=== PATIENT | male | born 2000 | race Caucasian/White ===

== ENCOUNTER 2023-03-30 16:44 | Emergency (ER) | payer OTHER, SELFPAY ==
[2023-03-30 16:52] VITALS: BP 139/85; PULSE 81; RESP 16; TEMP 36.6; O2SAT 100
--- NOTE | 2023-03-30 17:03 | ED.WOUNDLAC ---
HPI - Wound/Laceration General Stated Complaint: Lacs on left hand History of Present Illness HPI narrative: Patient presents for evaluation of a wound to his left hand. Patient was working on a copper pipe replacement at home and has a superficial laceration to his left thumb and left index finger. No open areas noted no bleeding. Patient is up-to-date on his tetanus shot. Related Data Allergies Allergy/AdvReac Type Severity Reaction Status Date / Time No Known Allergies Allergy Unknown Unverified 12/07/13 16:06 Review of Systems Review of Systems: CONSTITUTIONAL: Denies fever, chills, or sweats. EYES: Denies visual changes, redness, or discharge. ENT: Denies rhinorrhea, congestion, sore throat, or otalgia. CARDIOVASCULAR: Denies chest pain, palpitations, or edema. RESPIRATORY: Denies cough or dyspnea. GASTROINTESTINAL: Denies abdominal pain, nausea, vomiting, or diarrhea. GENITOURINARY: Denies dysuria or hematuria. SKIN: Denies rash or itching. MUSCULOSKELETAL: Denies back pain, joint pain, or myalgia. NEUROLOGIC: Denies headache, numbness, or weakness. PSYCHIATRIC: Denies anxiety or depression. PMFSH Comments At time of signature, agree with nursing past medical, surgical, social and family history. There is no relevant family history pertinent to the presenting complaint Exam Narrative: GENERAL: Well-appearing, well-nourished, and in no acute distress. HEAD: Normocephalic, atraumatic. EYES: PERRLA and EOMI. ENT: Nares clear, no rhinorrhea or epistaxis. Mucous membranes moist. NECK: Supple. CHEST: Clear to auscultation. No respiratory distress. HEART: Regular rate and rhythm. No murmur heard. Normal peripheral pulses. ABDOMEN: Soft, nontender, nondistended, normal active bowel sounds. EXTREMITIES: Normal range of motion. No edema. HAND EXAM -superficial circular laceration to left thumb palmar side and 2 cm superficial wound to left index finger no intervention needed, no swelling, no erythema, normal digit cascade with flexion of fingers, median nerve, ulnar nerve, radial nerve is intact. Normal sensation of each side of each finger, can perform `ok? sign, `cross over finger test of index and middle fingers? and `thumbs up? sign, normal thumb opposition, no scissoring. good capillary refill and radial pulse. normal flexion and extension of fingers and wrist. normal supination at wrist. Normal forearm and elbow exam. SKIN: Warm, dry, no rash. NEURO: No focal deficits. Alert and oriented x3. Mckenzie Coma Scale Eye Opening: Spontaneous 4 Ronaldo Coma Scale Motor: Obeys Commands 6 Mckenzie Coma Scale Verbal: Oriented 5 Ronaldo Coma Scale Total 15 Course Course Level of Care: Express Care Visit Vital Signs Vital signs: Vital Signs Temperature 36.6 C 03/30/23 16:52 Pulse Rate 81 03/30/23 16:52 Respiratory Rate 16 03/30/23 16:52 Blood Pressure 139/85 03/30/23 16:52 Pulse Oximetry 100 03/30/23 16:52 Oxygen Delivery Room Air 03/30/23 16:52 Temperature 36.6 C 03/30/23 16:52 Pulse Rate 81 03/30/23 16:52 Respiratory Rate 16 03/30/23 16:52 Blood Pressure 139/85 03/30/23 16:52 Pulse Oximetry 100 03/30/23 16:52 Oxygen Delivery Room Air 03/30/23 16:52 Procedures Laceration left index finger: ====== Skin Level ====== ====== Subcutaneous Layer ====== ====== Muscle Layer ====== ====== Tendon Layer ====== Dressing: Circular abrasion to left some no intervention needed 2 cm superficial abrasion to left index finger no intervention needed area soaked in antiseptic soap and normal saline mupirocin ointment applied and dry sterile dressing Discharge Plan Discharge Clinical Impression: Laceration Patient Disposition: Home, Self-Care Condition: Stable Instructions: Antibiotic Form, Finger Laceration (ED) Additional Instructions: Wash area with warm soapy water 1 to 2 times a day and apply bacitracin ointment as prescrib
== END 2023-03-30 17:15 | disposition home or self-care (01) ==
PROVIDERS: Emergency Provider Nurse Practitioner Family
DX: S61.412A Laceration without foreign body of left hand, initial encounter (principal); W45.8XXA Other foreign body or object entering through skin, initial encounter
CPT/HCPCS: 99203; G0463

== ENCOUNTER 2024-04-25 17:59 | Emergency (ER) | payer OTHER, SELFPAY ==
[2024-04-25 18:10] VITALS: BP 133/87; PULSE 96; RESP 18; TEMP 37.3; O2SAT 99
--- NOTE | 2024-04-25 19:03 | ED.SKABFB ---
HPI - Skin/Abscess/Foreign Bdy General Chief complaint: Skin/Abscess/Foreign Body Stated complaint: spots on chest Time Seen by Provider: 04/25/24 18:16 Source: patient, RN notes reviewed and old records reviewed Mode of arrival: ambulatory Limitations: no limitations History of Present Illness HPI narrative: 24-year-old male to Express Care with complaint of 2 red spots on his left breast for 3 days. Patient states he initially thought they were bug bites or blemishes. However, they have become increasingly red and tender to touch. patient has not attempted to treat at home. Patient resting comfortably in exam room in no acute distress. Related Data Home Medications Medication Instructions Recorded Confirmed fluoxetine 20 mg capsule mg 04/25/24 Allergies Allergy/AdvReac Type Severity Reaction Status Date / Time No Known Allergies Allergy Unknown Unverified 03/30/23 17:30 Review of Systems Review of Systems: All systems reviewed & are unremarkable except as noted in HPI and below Constitutional: Constitutional: Reports no additional constitutional complaints Eyes: Eyes: Reports no additional eye complaints ENT: Reports system reviewed and no additional complaints, except as documented Cardiovascular: Cardiovascular: Reports no additional cardiovascular complaints, Denies chest pain and Denies dyspnea Respiratory: Respiratory: Reports no additional respiratory complaints, Denies cough and Denies dyspnea Musculoskeletal: Musculoskeletal: Reports no additional musculoskeletal complaints Integumentary/Breasts: Skin/Breast: Reports as per HPI and Reports new lesions ( Left breast) Neurologic: Reports system reviewed and no additional complaints, except as documented Psychiatric: Psychiatric: Reports no additional psychiatric complaints PMFSH Comments At the time of my signature, I reviewed and agree with the nursing past medical, surgical, social, and family history. There is no relevant family history pertinent to the patient complaint. Exam Const: General: cooperative, healthy appearing, comfortable, no acute distress, alert and well nourished Nutritional Appearance: well nourished Orientation/consciousness: patient oriented x3 Limitations: no limitations HENMT: Head: normal to inspection Ears: external ears normal Face/Nose/Sinus: Normal external nose present, Normal nares present, normal facial exam, No erythema and No edema Face and sinus: normal facial exam, no erythema and no edema Mouth: Yes Normal oral and palatal mucosa present Eyes: General: appearance normal, both eyes and all related structures Neck: Neck: normal visual inspection, full ROM and no meningeal signs Chest: Chest palpation & inspection: normal inspection of the chest Resp: Effort & Inspection: normal respiratory effort and able to speak in complete sentences Cardio: Jugular venous distension: no JVD Rate: regular rate Back/Spine/Pelvis: Cervical Spine: cervical ROM normal Skin: General skin exam: turgor normal and lesion Lesions: lesion noted Other: two lesions present to left medial breast. Each lesion measures 1 cm x 1 cm. Erythematous, firm, tender to touch. No drainage present. Neuro: General: patient oriented x3, gait normal, moves all extremities and no meningeal signs Speech: normal speech Gait exam (Neuro): Normal gait present Extrem: General: normal to inspection, full ROM and capillary refill normal Psych: Appearance: grossly normal and well kempt Course Course Emergency Course: Some parts of this dictation were generated by voice recognition software and may contain typographical and/or grammatical inaccuracies. Level of Care: Express Care Visit Vital Signs Vital signs: Vital Signs Temperature 37.3 C 04/25/24 18:10 Pulse Rate 96 04/25/24 18:10 Respiratory Rate 18 04/25/24 18:10 Blood Pressure 133/87 04/25/24 18:10 Pulse Oximetry 99 04/25/24 18:10 Oxygen Delivery Room Air 04/25/24 18:10 Temperature 37.3 C 04/25/24 18:10 Pulse Rate 96 04/25/24 18:10 Respiratory Rate 18 04/25/24 18:10 Blood Pressure 133/87 04/25/24 18:10 Pulse Oximetry 99 04/25/24 18:10 Oxygen Delivery Room Air 04/25/24 18:10 reviewed MDM - Skin/Abscess/Foreign Bdy MDM Narrative Medical decision making narrative: 24-year-old male to Express Care with complaint of 2 red spots on his left breast for 3 days. Patient states he initially thought they were bug bites or blemishes. However, they have become increasingly red and tender to touch. patient has not attempted to treat at home. Patient resting comfortably in exam room in no acute distress. On exam, two lesions present to left medial breast. Each lesion measures 1 cm x 1 cm. Erythematous, firm, tender to touch. No drainage present. Patient is sitting comfortably in exam room nontoxic in appearance. Patient appropriate for outpatient treatment and follow-up. Discharge instructions reviewed with patient, as well as provided in writing per nursing staff. The instructions also include specific and strict return/GO TO THE ER as well as f/u information. All questions have been answered, and the patient deny any further questions with discharge and discharge plan. Some parts of this dictation were generated by voice recognition software and may contain typographical and/or grammatical inaccuracies. Differential Diagnosis Differential diagnosis: Likely abscess of skin or subcutaneous tissue, viral exanthem, dermatophytosis, urticaria, herpes zoster, allergic reaction to drug, cellulitis, eczema, insect bites, impetigo and contact dermatitis Discharge Plan Discharge Clinical Impression: Insect bites, Cellulitis Patient Disposition: Home, Self-Care Condition: Stable Instructions: Cellulitis (ED) Additional Instructions: Please review attached instructions and implement suggestion as tolerated please take entire course of antibiotic treatment for new or worsening symptoms please go directly to the emergency department Prescriptions: New cephalexin 500 mg capsule 500 mg PO Q12H Qty: 14 0RF No Action fluoxetine 20 mg capsule Follow-up/Referrals: PHYSICIAN NOT ON STAFF,NONSTAFF [Primary Care Provider] -
== END 2024-04-25 19:25 | disposition home or self-care (01) ==
PROVIDERS: Emergency Provider Nurse Practitioner Family
DX: S20.162A Insect bite (nonvenomous) of breast, left breast, initial encounter (principal); L03.313 Cellulitis of chest wall; W57.XXXA Bitten or stung by nonvenomous insect and other nonvenomous arthropods, initial encounter; F41.9 Anxiety disorder, unspecified; F32.A Depression, unspecified
CPT/HCPCS: 99213; G0463

== ENCOUNTER 2024-05-07 16:18 | Emergency (ER) | payer OTHER, SELFPAY ==
[2024-05-07 16:27] VITALS: BP 130/83; PULSE 97; RESP 16; TEMP 36.2; O2SAT 99
--- NOTE | 2024-05-07 16:33 | ED.SKABFB ---
HPI - Skin/Abscess/Foreign Bdy General Chief complaint: Skin/Abscess/Foreign Body Stated complaint: follow up on infection on chest Time Seen by Provider: 05/07/24 16:33 Source: patient, RN notes reviewed and old records reviewed Mode of arrival: ambulatory Limitations: no limitations History of Present Illness HPI narrative: 24 year old male who presents to express care who presents to express care with follow up for treatment for initially on 04/25/2024 for 2 red raised tender lesion on left upper breast chest wall area which were tender and measured [id number] each area and was treated with 7 days of Keflex for which he states completed. Today patient reports that he is concerned for lingering infection. Patient has 4cm X3cm area to left breast upper chest wall that is brownish in appearance with dark scab in center, no pustule formation or any induration or fluctuation of tissue, denies any drainage. Patient denies any pain to area or any fevers. MD complaint: other (cellulitis) Onset (ago): day(s) (initially 15 days ago) Location: chest (left upper breast chest wall) Severity: mild Treatments prior to arrival: other (completed 7 days of Keflex) Related Data Home Medications Medication Instructions Recorded Confirmed fluoxetine 20 mg capsule 20 mg DIRECTED 04/25/24 05/07/24 bupropion HCl 100 mg tablet 100 mg PO DIRECTED 05/07/24 05/07/24 Allergies Allergy/AdvReac Type Severity Reaction Status Date / Time No Known Allergies Allergy Unknown Unverified 03/30/23 17:30 Review of Systems Review of Systems: CONSTITUTIONAL: Denies fever, chills, or sweats. CARDIOVASCULAR: Denies chest pain, palpitations, or edema. RESPIRATORY: Denies cough or dyspnea. GASTROINTESTINAL: Denies abdominal pain, nausea, vomiting SKIN: Reports darker tissue to left upper breast chest wall area with no pain with darkened scab noted in center of area. MUSCULOSKELETAL: Denies myalgia. NEUROLOGIC: Denies headache, numbness All systems reviewed & are unremarkable except as noted in HPI and below PMFSH Past Medical History Medical History Anxiety and depression Social History Social History Smoking status: Never smoker Alcohol intake: unknown Substance use: unknown Living arrangements: with family Gender identity (if verbalized by the patient): Male Comments At time of signature, agree with nursing past medical, surgical, social and family history. There is no relevant family history pertinent to the presenting complaint Exam Narrative: GENERAL: Well-appearing, well-nourished, and in no acute distress. HEAD: Normocephalic, atraumatic. EYES: PERRLA and EOMI. ENT: Nares clear, no rhinorrhea or epistaxis. Mucous membranes moist. NECK: Supple.no lymphadenopathy CHEST: Clear to auscultation. No respiratory distress.SAO2 99% on room air HEART: Regular rate and rhythm. No murmur heard. Normal peripheral pulses. ABDOMEN: Soft, nontender, nondistended, normal active bowel sounds. EXTREMITIES: Normal range of motion. No edema. SKIN: Warm, dry. 4cm X 3cm area to left upper breast chest wall with noted black scab in area, no swelling or any induration or fluctuation of tissue, no pustule formation, reports no tenderness to area or any drainage. NEURO: No focal deficits. Alert and oriented x3. Course Course Emergency Course: Patient is aware of diagnosis, understands and agrees to treatment plan. Anticipatory guidance given. Patient agrees to follow-up as directed and is aware of reasons to seek care at the emergency department. Portions of this record may have been created with voice recognition software Level of Care: Express Care Visit Vital Signs Vital signs: Vital Signs Temperature 36.2 C L 05/07/24 16:27 Pulse Rate 97 05/07/24 16:27 Respiratory Rate 16 05/07/24 16:27 Blood Pressure 130/83 05/07/24 16:27 Pulse Oximetry 99 05/07/24 16:27 Oxygen Delivery Room Air 05/07/24 16:27 Temperature 36.2 C L 05/07/24 16:27 Pulse Rate 97 05/07/24 16:27 Respiratory Rate 16 05/07/24 16:27 Blood Pressure 130/83 05/07/24 16:27 Pulse Oximetry 99 05/07/24 16:27 Oxygen Delivery Room Air 05/07/24 16:27 Reviewed MDM - Skin/Abscess/Foreign Bdy MDM Narrative Medical decision making narrative: Does not appear at this time to be erythema multiforme, bullous, SJS, TEN; no evidence at this time to suggest RMSF, endocarditis or Lyme disease; patient looks well, nontoxic and is tolerating oral intake; no neurologic signs or symptoms; no headache, photophobia or neck pain; afebrile; appropriate for initial outpatient treatment; discussed the importance of follow-up, patient agrees. Patient does not have history of penetrating trauma, laceration, blunt trauma, recent surgery, immunosuppression, malignancy, obesity, alcoholism, corticosteroid use. Question cellulitis, necrotizing soft tissue infection, abscess. Differential Diagnosis Differential diagnosis: Likely abscess of skin or subcutaneous tissue, cellulitis, insect bites and contact dermatitis Medical Records Attestation: I reviewed the patient's medical records. Critical Care Time Critical Care Time Critical Care Time: No Discharge Plan Discharge Clinical Impression: Cellulitis Qualifiers: Site of cellulitis: trunk Site of cellulitis of trunk: chest wall Qualified Code(s): L03.313 - Cellulitis of chest wall Patient Disposition: Home, Self-Care Condition: Stable Instructions: Antibiotic Form, Cellulitis (ED) Additional Instructions: Wash area with liquid Dial soap twice daily my mupirocin ointment watch for increasing infection--redness, swelling, drainage Tylenol or ibuprofen for any fever pain follow up with PCP in 7-10 days for a wound check recheck if develop fever, chills, increasing symptom Go to the ER if your symptoms become worse of if ANY new symptoms develop Keflex twice daily for 7 days complete all doses If your symptoms persist, change or worsen significantly before you can contact your personal physician then please, without delay, go to the emergency department for further evaluation. Follow-up with PCP in 7-10 days or sooner if needed Follow up with PCP soon in regards to your blood pressure which is elevated above threshold for referral. Blood pressure above 120/80 may indicate pre-hypertension. 130/83 do not squeeze or remove scab Prescriptions: New mupirocin 2 % ointment 1 applic topical BID Qty: 22 0RF cephalexin 500 mg capsule 500 mg PO Q8H 7 Days Qty: 21 0RF No Action bupropion HCl 100 mg tablet 100 mg PO DIRECTED fluoxetine 20 mg capsule 20 mg DIRECTED Follow-up/Referrals: PHYSICIAN NOT ON STAFF,NONSTAFF [Primary Care Provider] - Time of Disposition: 16:44 Quality Ronaldo Coma Scale Eyes: Open Verbal: Oriented and Alert Motor: Follows Commands [place] Coma Total Score: 15
== END 2024-05-07 16:49 | disposition home or self-care (01) ==
PROVIDERS: Emergency Provider Registered Nurse
DX: L03.313 Cellulitis of chest wall (principal); F41.9 Anxiety disorder, unspecified; F32.A Depression, unspecified
CPT/HCPCS: 99213; G0463